=== PATIENT | male | born 1965 ===

== ENCOUNTER 2021-03-03 09:10 | Day surgery (SDC) | payer OTHER | END 2021-03-03 15:35 | disposition home or self-care (01) | LOC: CIR.AMB 09:10 | PROVIDERS: ATTEND Colon & Rectal Surgery | DX: C18.7 Malignant neoplasm of sigmoid colon (principal); D12.5 Benign neoplasm of sigmoid colon; K64.1 Second degree hemorrhoids; Z20.822 Contact with and (suspected) exposure to COVID-19 ==

== ENCOUNTER 2023-04-26 06:20 | Day surgery (SDC) | payer OTHER ==
[2023-04-18 08:25] LABS: URINE APPEARANCE Clear; URINE BILIRRUBIN Negative (NEGATIVE); URINE BLOOD Negative; URINE COLOR Yellow; URINE GLUCOSE Negative (NEGATIVE); URINE LEUKOCYTE Negative; URINE NITRATE Negative; URINE PROTEIN Negative (NEGATIVE); URINE UROBILINOGEN 0.2 E.U./dl
[2023-04-18 08:26] LABS: URINE BACTERIA 7.5 uL (0.0-1933); URINE EPITHELIAL CELLS 2.7 uL (0.0-38.8); URINE WBC 2.9 uL (0.0-23.2)
[2023-04-18 08:31] LABS: HEMATOCRIT 41.9 % (39.0-48.0); HEMOGLOBIN 14.1 g/dL (13-16.00); MEAN CELL VOLUME 90.2 fL (80.0-100.00); MEAN CORPUSCULAR HEMOGLOBIN 30.2 pg (27.00-32.0); MEAN CORPUSCULAR HGB CONC 33.5 g/dl (32.0-36.0); PLATELET COUNT 224 K/uL (150-450); RED BLOOD COUNT 4.65 M/uL (4.00-6.00); RED CELL DISTRIBUTION WIDTH 12.8 % (11.5-14.5)
[2023-04-18 08:34] LABS: URINE RBC 1.5 uL (0.0-20.8)
[2023-04-18 09:05] LABS: INR 1.03; PARTIAL THROMBOPLASTIN TIME 27.1 SECONDS (22.0-34.0); PROTHROMBIN TIME 10.8 SECONDS (9.0-11.5)
[2023-04-18 09:09] LABS: ALBUMIN 3.9 gm/dL (3.4-5.0); BILIRUBIN TOTAL 0.91 mg/dL (0.3-1.2); CALCIUM 9.9 mg/dL (8.5-10.1); CREATININE SERUM 1.07 mg/dL (0.70-1.30); GFR 71.49; GLOBULINA 3.7 G/DL (2.4-3.5); PHOSPHOROUS 3.8 mg/dL (2.5-4.9); POTASSIUM 5.31 mEq/L (3.5-5.1); TOTAL PROTEIN 7.6 gm/dL (6.4-8.2)
[~2023-04-26 06:20] MED LIST: ACTOS15 MG PO; ATIVAN1 M1 PO; CALTRATE; FLEXERIL; FLUOXETINE 20 MG; METFORMIN HCL500 M3; NEURONTIN 400 MG; XANAX XR2 MG PO; ZOCOR20 MG PO
[2023-04-26] MEDS ORDERED: CEFAZOLIN SODIUM 1,000 MG VIAL ONE (10:01)
[2023-04-26] MEDS ORDERED: LIDOCAINE HCL/EPINEPHRINE 20 ML VIAL IJ ONE ×2 (10:28→14:30)
[2023-04-26] MEDS ORDERED: POVIDONE-IODINE 118 ML BOTT TOP ONE ×2 (10:28→14:30)
[2023-04-26] MEDS ORDERED: EPINEPHRINE HCL/PF 1 MG/ML AMPUL ONE (10:28)
[2023-04-26] MEDS ORDERED: DEXAMETHASONE SODIUM PHOSPHATE 4 MG/ML VIAL ONE (10:42)
[2023-04-26] MEDS ORDERED: NEOMYCIN/POLYMYXIN B/HYDROCORT 20 DR/ML BOTTLE OT ONE (10:42)
[2023-04-26] MEDS ORDERED: CIPROFLOXACIN HCL 0.175 MG/DR DROPS OTIC ONE (14:30)
[2023-04-26] MEDS ORDERED: EPINEPHRINE HCL/PF 1 MG/ML AMPUL IR ONE (14:30)
[2023-04-26] MEDS ORDERED: CEFAZOLIN SODIUM 1,000 MG VIAL IV ONE (14:30)
[2023-04-26] MEDS ORDERED: DEXAMETHASONE SODIUM PHOSPHATE 4 MG/ML VIAL IV ONE (14:30)
[2023-04-26] MEDS ORDERED: CIPROFLOXACIN2.5 ML OTIC (15:04)
[2023-04-26] MEDS ORDERED: CEPHALEXIN500 M1 PO (15:04)
== END 2023-04-26 16:45 | disposition home or self-care (01) ==
LOC: CIR.AMB 06:20
PROVIDERS: ATTEND Otolaryngology Otology & Neurotology
DX: H71.02 Cholesteatoma of attic, left ear (principal); H72.12 Attic perforation of tympanic membrane, left ear; H90.12 Conductive hearing loss, unilateral, left ear, with unrestricted hearing on the contralateral side; Z88.6 Allergy status to analgesic agent